=== PATIENT | male | born 1960 | race Caucasian/White ===

== ENCOUNTER → 2023-12-09 06:58 | Outpatient (REF) | payer BC, SELFPAY | LOC: RAD 06:58 | PROVIDERS: ATTENDING PHYSICIAN Physician Assistant | DX: K11.1 Hypertrophy of salivary gland (principal) | CPT/HCPCS: 76536 ==

== ENCOUNTER → 2023-12-20 06:26 | Day surgery (SDC) | payer BC, SELFPAY | LOC: GI 06:26 | PROVIDERS: ATTENDING PHYSICIAN Internal Medicine Gastroenterology | DX: Z12.11 Encounter for screening for malignant neoplasm of colon (principal); Z86.010 Personal history of colon polyps; K64.8 Other hemorrhoids | CPT/HCPCS: 45380; 88305 ==